=== PATIENT | female | born 1990 | race Caucasian/White ===

== ENCOUNTER 2017-12-03 15:05 | Emergency (ER) | payer OTHER ==
[2017-12-03 15:22] VITALS: BP 113/57
--- NOTE | 2017-12-03 15:50 | XRAY Report ---
Procedure Date: 12/03/2017 Accession Number: [id number] / [id number] Procedure: XR - Ankle 3 View RT CPT Code: FULL RESULT: EXAM: RIGHT ANKLE RADIOGRAPHY EXAM DATE: 12/03/2017 03:42 PM. CLINICAL HISTORY: Right ankle pain after twisting injury today. COMPARISON: None. TECHNIQUE: 3 views. FINDINGS: Bones: Normal. No fractures or bone lesions. Joints: Normal. No effusion. No subluxations. The ankle mortise is normally aligned. Soft Tissues: Mild soft tissue swelling over the anterior ankle. IMPRESSION: No fracture or malalignment. RADIA
--- NOTE | 2017-12-03 15:53 | ED Physician Documentation ---
PD HPI LOWER EXT INJURY - Stated complaint Stated Complaint: RT ANKLE INJ - Chief complaint Chief Complaint: Ext Problem - History obtained from History obtained from: Patient, Friend - History of Present Illness PD HPI LOW EXT INJURY LOCATION: Right, Ankle Type of injury: Twist Where injury occurred: Park Timing - onset: Today Timing - duration: Minutes Timing - details: Abrupt onset, Still present Improved by: Rest, Immobilization Worsened by: Moving, Palpating Associated symptoms: Swelling. No: Weakness, Numbness Contributing factors: No: Anticoagulated Similar symptoms before: Diagnosis (ankle sprain) Recently seen: Not recently seen - Additional information Additional information: 27-year-old female was playing competitive kickball when she twisted her ankle and has pain and swelling on the lateral aspect of the ankle. She has not tried to bear weight since the incident. Review of Systems Constitutional: denies: Fever Eyes: denies: Decreased vision Ears: denies: Ear pain Nose: denies: Congestion Throat: denies: Sore throat Cardiac: denies: Chest pain / pressure Respiratory: denies: Dyspnea, Cough GI: denies: Abdominal Pain, Nausea, Vomiting : denies: Dysuria, Frequency Skin: denies: Rash Musculoskeletal: reports: Joint pain, Joint swelling, Pain with weight bearing. denies: Neck pain, Back pain PD PAST MEDICAL HISTORY - Past Medical History Past Medical History: No - Past Surgical History Past Surgical History: No - Present Medications Home Medications: Ambulatory Orders Medication Instructions Recorded Confirmed Cetirizine [ZyrTEC] 1 tab PO DAILY 12/03/17 12/03/17 - Allergies Allergies/Adverse Reactions: Allergies Allergy/AdvReac Type Severity Reaction Status Date / Time Penicillins AdvReac Rash Verified 12/03/17 15:23 sulfamethoxazole AdvReac Rash Verified 12/03/17 15:23 [From Bactrim] trimethoprim [From Bactrim] AdvReac Rash Verified 12/03/17 15:23 - Social History Does the pt smoke?: No Smoking Status: Never smoker Does the pt drink ETOH?: Yes Does the pt have substance abuse?: No - Immunizations Immunizations are current?: Yes - POLST Patient has POLST: No PD ED PE NORMAL - Vitals Vital signs reviewed: Yes (normal ) - General General: Alert and oriented X 3, No acute distress, Well developed/nourished - HEENT HEENT: Atraumatic, PERRL, EOMI - Neck Neck: Supple, no meningeal sign - Respiratory Respiratory: No respiratory distress - Derm Derm: Normal color, Warm and dry, No rash - Extremities Extremities: No deformity, Other (There is swelling and point tenderness to the lateral aspect of the right ankle over the talofibular ligment. The distal n/v is intact and there is no tenderness to the proximal 5th. ) - Neuro Neuro: Alert and oriented X 3, No motor deficit, No sensory deficit, Normal speech Eye Opening: Spontaneous Motor: Obeys Commands Verbal: Oriented GCS Score: 15 - Psych Psych: Normal mood, Normal affect Results - Vitals Vitals: Vital Signs - 24 hr 12/03/17 15:18 Temperature 36.8 C Heart Rate 89 Respiratory 16 Rate Blood Pressure 113/57 L O2 Saturation 99 Oxygen O2 Source Room air - Rads (name of study) ankle right Radiology: Prelim report reviewed (Impression: No fracture or malalignment.), EMP read indepedently, See rad report Procedures - Splint (location) right ankle Splint applied by: Tech Type of splint: Ankle airsplint Other: Patient tolerated well, No complications, Neurovascular intact, Good alignment PD MEDICAL DECISION MAKING - ED course Complexity details: reviewed results, re-evaluated patient, considered differential, d/w patient, d/w family ED course: 27-year-old female with a sprain of the right ankle over the talofibular ligament was placed into an ankle stirrup. - Sepsis Event Vital Signs: Vital Signs - 24 hr 12/03/17 15:18 Temperature 36.8 C Heart Rate 89 Respiratory 16 Rate Blood Pressure 113/57 L O2 Saturation 99 Oxygen O2 Source Room air Departure - Departure Disposition: 01 Home, Self Care Clinical Impression: Ankle sprain Qualifiers: Encounter type: initial encounter Involved ligament of ankle: anterior talofibular ligament Laterality: right Qualified Code(s): S93.491A - Sprain of other ligament of right ankle, initial encounter Instructions: ED Sprain Ankle W X Ray Follow-Up: MELISSA SUH [Primary Care Provider] -
[2017-12-03] MEDS ORDERED: IBUPROFEN 600 MG TABLET PO STA (16:37)
== END 2017-12-03 17:04 | disposition home or self-care (01) ==
LOC: ED 15:05
DX: S93.491A Sprain of other ligament of right ankle, initial encounter (principal); X50.1XXA Overexertion from prolonged static or awkward postures, initial encounter; Y93.69 Activity, other involving other sports and athletics played as a team or group
CPT/HCPCS: 73610; 99282; 99283; A9270

== ENCOUNTER 2019-08-02 17:07 | Outpatient (CLI) | payer OTHER | END 2019-08-02 17:08 | disposition critical access hospital (66) | LOC: EMS 17:07 | PROVIDERS: ATTEND Surgery | DX: R22.0 Localized swelling, mass and lump, head (principal); R06.02 Shortness of breath | CPT/HCPCS: A0425; A0427 ==

== ENCOUNTER 2019-08-02 17:29 | Emergency (ER) | payer OTHER ==
[2019-08-02] MEDS ORDERED: methylPREDNISolone SUCCINATE 125 MG/2 ML VIAL IVP STA (17:34)
[2019-08-02] MEDS ORDERED: SODIUM CHLORIDE 0.9% 1,000 ML IV ONE (17:34)
--- NOTE | 2019-08-02 17:36 | ED Physician Documentation ---
History of Present Illness - Stated complaint Stated Complaint: ALLERGIC REACTION - History obtained from History obtained from: Patient (29-year-old woman with history of shellfish allergy and other allergies in the family. She ate some cookies and an energy drink and then started to feel oropharyngeal swelling. She came became very tachypneic. Prior to arrival she received 50 mg of IM Benadryl and 0.3 mg of IM epinephrine with some improvement.), EMS Review of Systems Constitutional: denies: Fever, Chills Throat: denies: Dental pain / toothache, Sore throat Cardiac: denies: Chest pain / pressure, Palpitations Respiratory: denies: Dyspnea PD PAST MEDICAL HISTORY - Past Surgical History Past Surgical History: No - Present Medications Home Medications: Ambulatory Orders Medication Instructions Recorded Confirmed Cetirizine [ZyrTEC] 1 tab PO DAILY 12/03/17 12/03/17 - Allergies Allergies/Adverse Reactions: Allergies Allergy/AdvReac Type Severity Reaction Status Date / Time Penicillins AdvReac Rash Verified 08/02/19 17:52 sulfamethoxazole AdvReac Rash Verified 08/02/19 17:52 [From Bactrim] trimethoprim [From Bactrim] AdvReac Rash Verified 08/02/19 17:52 - Social History Does the pt smoke?: No Smoking Status: Never smoker Does the pt drink ETOH?: Yes Does the pt have substance abuse?: No - Immunizations Immunizations are current?: Yes - POLST Patient has POLST: No PD ED PE NORMAL - Vitals Vital signs reviewed: Yes - General General: Alert and oriented X 3, Other (She is hyperventilating and appears anxious and tearful) - HEENT HEENT: Other (No visible swelling of the oropharynx) - Neck Neck: Supple, no meningeal sign, No bony TTP - Cardiac Cardiac: Other (Tachycardic but regular without murmur) - Respiratory Respiratory: Clear bilaterally - Abdomen Abdomen: Non tender - Derm Derm: Other (No rash) - Neuro Neuro: Alert and oriented X 3, Normal speech Results - Vitals Vitals: Vital Signs - 24 hr 08/02/19 08/02/19 08/02/19 17:52 18:46 19:11 Temperature 36.9 C Heart Rate 122 H 91 95 Respiratory 27 H 20 16 Rate Blood Pressure 120/76 129/72 O2 Saturation 100 100 97 08/02/19 08/02/19 19:58 20:27 Temperature Heart Rate 91 Respiratory 17 16 Rate Blood Pressure 114/67 O2 Saturation 97 Oxygen O2 Source Room air PD MEDICAL DECISION MAKING - ED course ED course: 29-year-old woman with an acute anaphylactic reaction, seems superimposed on an anxiety reaction. She was observed for several hours without recurrence and remained clinically asymptomatic here from an anaphylaxis perspective. Later we learned that the cookies were marijuana laced. Given the prominent anxiety sx, and lack of physical findings of anaphylaxis this now is more c/w a "bad trip." Departure - Departure Disposition: 01 Home, Self Care Clinical Impression: Adverse drug experience Qualifiers: Encounter type: initial encounter Qualified Code(s): T50.905A - Adverse effect of unspecified drugs, medicaments and biological substances, initial encounter Condition: Good Instructions: ED Allergic React Food Comments: Return as needed, do not drive tonight.
[2019-08-02 20:57] VITALS: BP 111/66
== END 2019-08-02 21:00 | disposition home or self-care (01) ==
LOC: EDUNIT# → ED 17:29
DX: F41.9 Anxiety disorder, unspecified (principal); T50.905A Adverse effect of unspecified drugs, medicaments and biological substances, initial encounter
CPT/HCPCS: 36415; 96374; 99284